=== PATIENT | male | born 1985 | race Caucasian/White ===

== ENCOUNTER 2017-09-20 12:14 | Emergency (ER) | payer BC ==
[~2017-09-20 12:14] MED LIST: Aspirin PO; DICYCLOMINE HCL20 MG PO; KEPPRA500 MG PO; Phenytoin Sodium PO
--- OUTSIDE RECORDS SUMMARY | 2017-09-20 12:16 | XMS REPORT ---
Author Author [facility] Address Unknown Phone Unavailable Care Team Providers Care Fly Winder Name Role Phone JONNY RAINES Unavailable Unavailable Problems This patient has no known problems. Allergies, Adverse Reactions, Alerts This patient has no known allergies or adverse reactions. Medications This patient has no known medications. Results Test Description Test Time Test Comments Text Results Atomic Results Result Comments CT BRAIN WO [address] [address] Patient Name: BEENA CRUZ MR #: [id number] : 1985 Age/Sex: 31/M Req # : [id number] Adm Physician: Ordered by: JONNY RAINES MD Report # : [id number] Location: ER Room/Bed: Procedure: 1123 -0001 CT/CT BRAIN WO Exam Date: Exam Time: REPORT STATUS: Signed History: Seizure Comparison studies: None Technique: Axial images were obtained from the skull base to the vertex. Coronal and sagittal reconstructions obtained from the axial data. Findings : Scalp/skull: No abnormalities. No fractures, blastic or lytic lesions. Extra-axial spaces: No masses. No fluid collections. Brain sulci: Appropriate for age. Ventricles: Normal in size and configuration. No hydrocephalus. Parenchyma: No abnormal densities. No masses, hemorrhage, acute or chronic cortical vascular insults. Sellar/ suprasellar region: No abnormalities Craniocervical junction: Patent foramen magnum. No Chiari one malformation. IMPRESSION: No abnormalities Signed by: Dr. Anatoly Mckay M.D. on 05/27/2017 6:17 AM Dictated By: ANATOLY MCKAY MD, MD 6 Transcribed By: SHANE on 05/27/17616 COPY TO: JONNY RAINES MD
[2017-09-20] MEDS ORDERED: LISINOPRIL 10 MG TAB PO ONE (15:00)
== END 2017-09-20 15:10 | disposition short-term general hospital (02) ==
LOC: ER 12:14
DX: R56.9 Unspecified convulsions (principal)